=== PATIENT | male | born 1990 | race Caucasian/White ===

== ENCOUNTER 2024-02-17 23:18 | Emergency (ER) | payer BC ==
[~2024-02-17] VITALS: Ht 175.3 cm; Wt 63.5 kg
[2024-02-17] MEDS ORDERED: LORAZEPAM 1 MG TABLET ONE (23:46)
[2024-02-17] MEDS: LORAZEPAM 1 MG TABLET PO ONE (23:50)
[2024-02-18 00:24] LABS: BASOPHILS % (AUTO) 0.7 % (0.0-2.0); EOSINOPHILS # (AUTO) 0.1 K/uL (0.0-0.7); EOSINOPHILS % (AUTO) 3.2 % (0.0-6.0); HEMATOCRIT 42 % (39-51); LYMPHOCYTES # (AUTO) 1.3 K/uL (0.8-4.8); LYMPHOCYTES % (AUTO) 27.1 % (20.0-44.0); MEAN CORPUSCULAR HEMOGLOBIN 30 PG (26.0-33.0); MEAN CORPUSCULAR HGB CONC 34 g/dl (31.0-36.0); MEAN CORPUSCULAR VOLUME 88 fL (80-96); MONOCYTES # (AUTO) 0.3 K/uL (0.1-1.30); MONOCYTES % (AUTO) 6.5 % (2.0-12.0); NEUTROPHILS # (AUTO) 2.9 K/uL (1.8-8.9); NEUTROPHILS % (AUTO) 62.5 % (43.0-81.0); PLATELET COUNT (AUTO) 186 K/uL (150-450); RED BLOOD CELL COUNT(AUTO) 4.73 MIL/uL (4.5-6.0); RED CELL DISTRIBUTION WIDTH 13.8 % (11.5-15.0); WHITE BLOOD COUNT (AUTO) 4.6 K/uL (4.3-11.0)
[2024-02-18 00:36] LABS: CALCIUM, SERUM 9.2 mg/dL (8.5-10.1); CREATININE 1.1 mg/dL (0.6-1.3); POTASSIUM 3.4 mmol/L (3.5-5.1)
[2024-02-18 01:49] VITALS: BP 121/89; TEMP 98; O2SAT 99
== END 2024-02-18 01:50 | disposition home or self-care (01) ==
LOC: ER 23:25
DX: F15.90 Other stimulant use, unspecified, uncomplicated (principal); R00.2 Palpitations
CPT/HCPCS: 36415; 80048-TC; 85025-TC